=== PATIENT | male | born 1960 | race African-American/Black ===

== ENCOUNTER 2016-08-26 12:24 | Emergency (ER) | payer SELFPAY ==
[2016-08-26] MEDS ORDERED: DEXAMETHASONE 10 MG/ML VIAL PO STA (14:11)
[2016-08-26] MEDS ORDERED: KETOROLAC 60 MG/2 ML VIAL IM STA (14:11)
[2016-08-26] MEDS ORDERED: CHERRY SYRUP 10 ML UDC PO ONE (14:20)
[2016-08-26] MEDS ORDERED: DEXAMETHASONE 10 MG/ML VIAL ONE (14:20)
[2016-08-26] MEDS ORDERED: KETOROLAC 60 MG/2 ML VIAL ONE (14:20)
== END 2016-08-26 15:47 | disposition home or self-care (01) ==
DX: M75.51 Bursitis of right shoulder (principal); M70.811 Other soft tissue disorders related to use, overuse and pressure, right shoulder; Y93.H3 Activity, building and construction; Y92.89 Other specified places as the place of occurrence of the external cause; Y99.0 Civilian activity done for income or pay
CPT/HCPCS: 73030; 96372; 99283; A9270